=== PATIENT | female | born 1955 | race Caucasian/White ===

== ENCOUNTER 2016-09-12 09:32 | Day surgery (SDC) | payer BC, OTHER ==
--- NOTE | 2016-09-12 07:56 | P.GSHP ---
History of Present Illness H&P Date: 09/12/16 CHIEF COMPLAINT: GERD HISTORY OF PRESENT ILLNESS: The patient is a 61-year-old female who presents reports gastroesophageal reflux disease. Upper endoscopy was offered for further evaluation and management. PAST MEDICAL HISTORY: Please see list. PAST SURGICAL HISTORY: Please see list. MEDICATIONS: Please see list. ALLERGIES: Please see list. SOCIAL HISTORY: No illicit drug use FAMILY HISTORY: No reports of Crohn disease or ulcerative colitis. REVIEW OF ORGAN SYSTEMS: CONSTITUTIONAL: No reports of fevers or chills. GI: Denies any blood in stools or constipation. PHYSICAL EXAM: VITAL SIGNS: Stable GENERAL: Well-developed and pleasant in no acute distress. HEENT: No scleral icterus. Extraocular movements grossly intact. Moist buccal mucosa. NECK: Supple without lymphadenopathy. CHEST: Unlabored respirations. Equal bilateral excursions. CARDIOVASCULAR: Regular rate and rhythm. Distal 2+ pulses. ABDOMEN: Soft, nondistended. MUSCULOSKELETAL: No clubbing, cyanosis, or edema. ASSESSMENT: 1. Gastroesophageal reflux disease PLAN: 1. Recommend proceeding with an upper endoscopy Past Medical History Past Medical History: COPD, GERD/Reflux, Pulmonary Embolus (PE) Additional Past Medical History / Comment(s): PE-1976 ON BIRTHCONTROL & SMOKING. ,HIATAL HERNIA History of Any Multi-Drug Resistant Organisms: None Reported Past Surgical History: Appendectomy, Cholecystectomy, Heart Catheterization, Hysterectomy Additional Past Surgical History / Comment(s): 12-16-14 RT THYROID LOBECTOMY Past Anesthesia/Blood Transfusion Reactions: Motion Sickness Additional Past Anesthesia/Blood Transfusion Reaction / Comment(s): STATES "FEELS LIKE IT TAKES ME A LONG TIME TO WAKE UP" Past Psychological History: No Psychological Hx Reported Smoking Status: Former smoker Past Alcohol Use History: Occasional Additional Past Alcohol Use History / Comment(s): STARTED SMOKING 1968, 1 PPD Past Drug Use History: None Reported - Past Family History Sister(s) Family Medical History: Cancer Additional Family Medical History / Comment(s): GALLBLADDER CA Mother Family Medical History: COPD Additional Family Medical History / Comment(s): CARDIOMYOPATHY Father Additional Family Medical History / Comment(s): TRAUMA ACCIDENT- 1960 Medications and Allergies Home Medications Medication Instructions Recorded Confirmed Type Calcium Carbonate/Vitamin D3 1 each PO DAILY 12/03/14 09/07/16 History [Calcium 600-Vit D3 400 Tablet] Omeprazole [PriLOSEC] 20 mg PO QAM PRN 12/03/14 09/07/16 History Cholecalciferol [Vitamin D3] 1 tab PO DAILY 09/07/16 09/07/16 History S-Adenosylmethionine Sul Tosyl 1 tab PO DAILY 09/07/16 09/07/16 History [Stephane-E] Allergies Allergy/AdvReac Type Severity Reaction Status Date / Time amoxicillin [From Augmentin] Allergy Itching Verified 09/07/16 16:16 clavulanic acid Allergy Itching Verified 09/07/16 16:16 [From Augmentin]
[~2016-09-12 09:32] MED LIST: LACTATED RINGERS 1,000 ML IV SCH; LIDOCAINE 1% 20 ML VIAL (10MG/ML) FOR IV START INTRADERMA PRN
[2016-09-12 10:07] VITALS: RESP 16; TEMP 98.8
[2016-09-12] MEDS ORDERED: PROPOFOL 10 MG/ML 20 ML VIAL IV ONE (10:07)
[2016-09-12] MEDS ORDERED: LIDOCAINE 1% INJ 10MG/ML (20 ML MDV) ONE (10:07)
--- NOTE | 2016-09-12 10:19 | P.PCN ---
Date of Procedure: 09/12/16 Description of Procedure: PREOPERATIVE DIAGNOSIS: Gastroesophageal reflux disease. POSTOPERATIVE DIAGNOSIS: Gastroesophageal reflux disease. Chronic gastritis Diaphragmatic hiatal hernia. Erosive esophagitis OPERATION: Esophagogastroduodenoscopy with biopsies along antrum. SURGEON: Jaky Pabon MD ANESTHESIA: MAC. INDICATIONS: The patient is a 61-year-old female who presents with a history of gastroesophageal reflux disease. Benefits and risks of the procedure were described. Informed consent was obtained. DESCRIPTION: The patient was brought into the endoscopy suite and laid in the left lateral decubitus position. An Olympus gastroscope was passed along the posterior oropharynx down to the distal esophagus where the squamocolumnar junction was encountered at 39 cm from the incisors. The stomach was entered and minimal bile reflux was found. Additional findings are listed below. Biopsies with cold forceps were obtained of the antrum. The first through third portion of the duodenum was examined and unremarkable. Retroflexion of the scope confirmed Hill grade 3 lower esophageal valve. The squamocolumnar junction demostrated chronic LA grade C erosive esophagitis. The stomach was desufflated. The patient tolerated the procedure well. FINDINGS: Squamocolumnar junction 39 cm from the incisors. Diaphragmatic hiatus at 41 cm from the incisors Hiatal hernia, 2 cm. Hill grade 3 lower esophageal valve. LA grade C erosive esophagitis. Chronic gastritis along the antrum. No active duodenitis. RECOMMENDATIONS: Continue medical therapy. Further recommendations pending results of pathology report. Upper endoscopy as needed. Plan - Discharge Summary Discharge Medication List Calcium Carbonate/Vitamin D3 [Calcium 600-Vit D3 400 Tablet] 1 each PO DAILY [History] Omeprazole [PriLOSEC] 20 mg PO QAM PRN 12/03/14 [History] Cholecalciferol [Vitamin D3] 1 tab PO DAILY 09/07/16 [History] S-Adenosylmethionine Sul Tosyl [Stephane-E] 1 tab PO DAILY 09/07/16 [History]
[2016-09-12 10:41] VITALS: BP 112/60; PULSE 77
== END 2016-09-12 10:57 | disposition home or self-care (01) ==
LOC: ORWHC2ENDO 09:32
PROVIDERS: ATTEND Surgery Plastic and Reconstructive Surgery
DX: K21.0 Gastro-esophageal reflux disease with esophagitis (principal); K29.50 Unspecified chronic gastritis without bleeding; K44.0 Diaphragmatic hernia with obstruction, without gangrene; J44.9 Chronic obstructive pulmonary disease, unspecified; E11.9 Type 2 diabetes mellitus without complications; Z86.711 Personal history of pulmonary embolism; Z79.899 Other long term (current) drug therapy; Z88.1 Allergy status to other antibiotic agents; Z87.891 Personal history of nicotine dependence
CPT/HCPCS: 88305; 88342; 43239; J2001; J2704

== ENCOUNTER → 2016-10-23 | Outpatient (CLI) | payer BC ==
[2016-10-23 10:15] LABS: EKG EKG PERFORMED
[2016-10-23 10:44] LABS: CH 30.2; CHCM 35.7; HCT 44.2 % (34.0-46.0); HDW 2.76; HGB 15.8 gm/dL (11.4-16.0); MCH 30.3 pg (25.0-35.0); MCHC 35.6 g/dL (31.0-37.0); MCV 85.1 fL (80.0-100.0); Mean Platelet Volume 6.5; RDW 13.3 % (11.5-15.5); WBC 7.8 k/uL (3.8-10.6)
[2016-10-23 11:14] LABS: ALT 66 U/L (9-52); AST 46 U/L (14-36); Alkaline Phosphatase 99 U/L (38-126); Anion Gap 12 mmol/L; Blood Urea Nitrogen 9 mg/dL (7-17); Calcium 9.8 mg/dL (8.4-10.2); Carbon Dioxide 25 mmol/L (22-30); Chloride 106 mmol/L (98-107); Glucose 98 mg/dL (74-99); Non-African American GFR(MDRD) >60 (>60 ml/min/1.73 sqM); Potassium 4.5 mmol/L (3.5-5.1); Sodium 143 mmol/L (137-145); Total Protein 7.8 g/dL (6.3-8.2)
== END | disposition home or self-care (01) ==
LOC: LABWHC1 10:00
PROVIDERS: ATTEND Surgery Plastic and Reconstructive Surgery
DX: K44.9 Diaphragmatic hernia without obstruction or gangrene (principal)
CPT/HCPCS: 36415; 80053; 85027; 93005

== ENCOUNTER 2016-10-26 08:03 | Inpatient (IN) | payer BC ==
[2016-10-19 17:16] VITALS: BMI 35.0
[~2016-10-26 08:03] MED LIST changes: +DEXAMETHASONE SOD PHOSPHATE 10 MG/ML 1 ML VIAL IV ONE; +HEPARIN SODIUM,PORCINE 5,000 UNIT/ML 1 ML VIAL SQ ONE; +HYDROmorphone 1 MG/ML 1 ML SYRINGE IVP PRN; -LACTATED RINGERS 1,000 ML IV SCH; +ONDANSETRON 4 MG/2 ML VIAL IVP ONE; +SCOPOLAMINE 1.5MG/72HR PATCH TRANSDERM ONE; +ceFAZolin 2 GM in SODIUM CHLORIDE 0.9% 100 ML IVPB ONE
[2016-10-26] MEDS: LACTATED RINGERS 1,000 ML IV SCH ×2 (08:35→08:36)
[2016-10-26] MEDS ORDERED: ACETAMINOPHEN IV (For NPO) 1,000 MG in EMPTY BAG 1 BAG IVPB ONE ×2 (11:09→17:30)
--- NOTE | 2016-10-26 11:09 | P.GSHP ---
History of Present Illness H&P Date: 10/26/16 CHIEF COMPLAINT: Paraesophageal hiatal hernia with gastroesophageal reflux disease. HISTORY OF PRESENT ILLNESS: The patient is a 61-year-old female who presents with paraesophageal hiatal hernia. She has completed an esophageal manometry including upper endoscopy workup. Now she presents for surgical intervention. PAST MEDICAL HISTORY: Please see list. PAST SURGICAL HISTORY: Please see list. MEDICATIONS: Please see list. ALLERGIES: Please see list. SOCIAL HISTORY: No illicit drug use FAMILY HISTORY: No reports of Crohn disease or ulcerative colitis. REVIEW OF ORGAN SYSTEMS: CONSTITUTIONAL: No reports of fevers or chills. GI: Denies any blood in stools or constipation. PHYSICAL EXAM: VITAL SIGNS: Stable GENERAL: Well-developed pleasant and in no acute distress. HEENT: No scleral icterus. Extraocular movements grossly intact. Moist buccal mucosa. NECK: Supple without lymphadenopathy. CHEST: Unlabored respirations. Equal bilateral excursions. CARDIOVASCULAR: Regular rate and rhythm. Distal 2+ pulses. ABDOMEN: Soft, nondistended. No peritoneal signs. MUSCULOSKELETAL: No clubbing, cyanosis, or edema. ASSESSMENT: 1. Diaphragmatic paraesophageal hiatal hernia with severe gastroesophageal reflux disease. PLAN: 1. Recommend proceeding with a laparoscopic paraesophageal hiatal hernia with mesh. 2. Benefits and risks of surgical intervention was discussed including possibility of open technique. 3. Inpatient hospitalization recommended of 2 nights or less. 4. DVT prophylaxis. 5. Antibiotic prophylaxis. 6. She has also completed a very low caloric high-protein diet to address underlying hepatomegaly. Past Medical History Past Medical History: Cancer, COPD, GERD/Reflux, Pulmonary Embolus (PE), Thyroid Disorder Additional Past Medical History / Comment(s): PE-1976, (ON BIRTHCONTROL & SMOKING). HX CA CERVIX. HX GOITER. HIATAL HERNIA - UNABLE TO EAT SOLIDS IN PAST MO D/T PAIN, POS WGT LOSS. History of Any Multi-Drug Resistant Organisms: None Reported Past Surgical History: Appendectomy, Cholecystectomy, Heart Catheterization, Hysterectomy Additional Past Surgical History / Comment(s): 12-16-14 RT THYROID LOBECTOMY. EGD 09/12/16 Past Anesthesia/Blood Transfusion Reactions: Previous Problems w/ Anesthesia, Motion Sickness Additional Past Anesthesia/Blood Transfusion Reaction / Comment(s): STATES "FEELS LIKE IT TAKES ME A LONG TIME TO WAKE UP" Smoking Status: Current every day smoker - Past Family History Sister(s) Family Medical History: Cancer Additional Family Medical History / Comment(s): GALLBLADDER CA Mother Family Medical History: COPD Additional Family Medical History / Comment(s): CARDIOMYOPATHY Father Additional Family Medical History / Comment(s): TRAUMA ACCIDENT- 1960 Medications and Allergies Home Medications Medication Instructions Recorded Confirmed Type Calcium Carbonate/Vitamin D3 1 each PO DAILY 12/03/14 10/26/16 History [Calcium 600-Vit D3 400 Tablet] Omeprazole [PriLOSEC] 20 mg PO QAM PRN 12/03/14 10/26/16 History Cholecalciferol [Vitamin D3] 1,000 unit PO DAILY 09/07/16 10/26/16 History S-Adenosylmethionine Sul Tosyl 200 mg PO DAILY 09/07/16 10/26/16 History [Stephane-E] Allergies Allergy/AdvReac Type Severity Reaction Status Date / Time amoxicillin [From Augmentin] Allergy Itching Verified 10/26/16 08:17 clavulanic acid Allergy Itching Verified 10/26/16 08:17 [From Augmentin] Surgical - Exam Vital Signs Temp Pulse Resp BP Pulse Ox 97.5 F L 77 15 125/81 98 10/26/16 08:18 10/26/16 08:18 10/26/16 08:18 10/26/16 08:18 10/26/16 08:18
[2016-10-26] MEDS ORDERED: GLYCOPYRROLATE 0.2 MG/ML 2 ML VIAL ONE (13:52)
[2016-10-26] MEDS ORDERED: MIDAZOLAM 2 MG/2 ML VIAL ONE (13:52)
[2016-10-26] MEDS ORDERED: LIDOCAINE 1% INJ 10MG/ML (20 ML MDV) ONE (13:52)
[2016-10-26] MEDS ORDERED: PHENYLEPHRINE-0.9% NACL SYG 1 MG/10 ML SYRINGE ONE (13:52)
[2016-10-26] MEDS ORDERED: SUCCINYLCHOLINE CHLORIDE 100 MG/5 ML SYR IV ONE (13:52)
[2016-10-26] MEDS ORDERED: NEOSTIGMINE 1 MG/ML 10 ML VIAL ONE (13:52)
[2016-10-26] MEDS ORDERED: fentaNYL (PF) 50 MCG/ML 2 ML AMP ONE (13:52)
[2016-10-26] MEDS ORDERED: PROPOFOL 10 MG/ML 20 ML VIAL IV ONE (13:52)
[2016-10-26] MEDS ORDERED: HYDROmorphone (PF) 1 MG/ML ONE (13:52)
[2016-10-26] MEDS ORDERED: ROCURONIUM BROMIDE 10 MG/ML 10 ML VIAL IV ONE (13:52)
[2016-10-26] MEDS ORDERED: BUPIVACAIN-EPI 0.5%-1:200,000 30 ML VIAL SQ ONE (14:31)
[2016-10-26] MEDS ORDERED: LACTATED RINGERS 1,000 ML IV ONE (16:42)
[2016-10-26] MEDS ORDERED: HYDROcodone/APAP 15 ML SOLUTION PO PRN (17:05)
[2016-10-26] MEDS ORDERED: NALOXONE 0.4 MG/ML 1 ML VIAL IV PRN (17:05)
[2016-10-26] MEDS ORDERED: diphenhydrAMINE 50 MG/ML 1 ML VIAL IVP PRN (17:05)
--- NOTE | 2016-10-26 17:11 | P.PCN ---
Date of Procedure: 10/26/16 Preoperative Diagnosis: Paraesophageal hiatal hernia, gastroesophageal reflux disease Postoperative Diagnosis: Same Procedure(s) Performed: Robotic-assisted laparoscopic paraesophageal hiatal hernia repair with [place] Biopatch a 8 x 8 cm, intraoperative esophagogastroduodenoscopy Implants: 8 x 8 cm [place] Biopatch a Anesthesia: GETA, local (60) Surgeon: Jaky Pabon Estimated Blood Loss (ml): 5 Pathology: none sent Condition: stable Disposition: floor Indications for Procedure: Operative Findings: 1. 5 cm paraesophageal diaphragmatic hiatal hernia with moderate dissections in the mediastinum. 2. [place] Biopatch a onlay mesh placed. 3. Closure of the hiatus consistent with to 52-Maori bougie. Description of Procedure:
[2016-10-26] MEDS: 0.9% NACL WITH KCL 20 MEQ/L 1,000 ML IV SCH ×2 (18:50→23:59)
[2016-10-26] MEDS: KETOROLAC 30 MG/ML 1 ML VIAL IVP SCH (18:54)
[2016-10-26] MEDS: HYOSCYAMINE ORAL DROPS 1.875 MG/15 ML BOTTLE PO SCH (18:57)
[2016-10-26] MEDS: SIMETHICONE 40 MG/0.6 ML DROPS 2,000 MG/30 ML BOTTLE PO SCH (18:59)
[2016-10-26] MEDS ORDERED: TAMSULOSIN 0.4 MG CAP.ER.24H PO STA (21:47)
[2016-10-27] MEDS: SIMETHICONE 40 MG/0.6 ML DROPS 2,000 MG/30 ML BOTTLE PO SCH ×3 (00:02→12:10)
[2016-10-27] MEDS: HYOSCYAMINE ORAL DROPS 1.875 MG/15 ML BOTTLE PO SCH ×3 (00:04→12:09)
[2016-10-27] MEDS: CLINDAMYCIN 900 MG in DEXTROSE 5% IN WATER 50 ML IVPB SCH ×4 (00:05→08:22)
[2016-10-27] MEDS: ONDANSETRON 4 MG/2 ML VIAL IVP SCH ×2 (00:22→08:24)
[2016-10-27] MEDS: KETOROLAC 30 MG/ML 1 ML VIAL IVP SCH ×3 (06:19→12:11)
[2016-10-27] MEDS: 0.9% NACL WITH KCL 20 MEQ/L 1,000 ML IV SCH ×3 (06:42→14:40)
--- NOTE | 2016-10-27 08:09 | FL ---
EXAMINATION TYPE: FL esophagus cervic/pharynx DATE OF EXAM ORDERED: 10/27/2016 8:04 AM HISTORY: Status post Paul fundoplication. COMPARISON: None. FINDINGS: The patient drank Omnipaque with ease. The esophagus distended well with Omnipaque without evidence of obstructing or constricting disease. There is mild holdup of egress of contrast from the lower esophagus into the stomach. There is no evidence of extravasation or significant free air. IMPRESSION: STATUS POST PAUL FUNDOPLICATION. THERE IS VERY MILD HOLDUP OF CONTRAST AT THE GE JUNCTION.
[2016-10-27 08:56] LABS: Phosphorous 2.9 mg/dL (2.5-4.5); Potassium 4.5 mmol/L (3.5-5.1)
[2016-10-27] MEDS ORDERED: PANTOPRAZOLE 40 MG/10 ML VIAL IV SCH (09:00)
[2016-10-27] MEDS ORDERED: ENOXAPARIN 40 MG/0.4 ML SYRINGE SQ SCH (09:00)
[2016-10-27 09:01] VITALS: RESP 20
[2016-10-27] MEDS ORDERED: TAMSULOSIN 0.4 MG CAP.ER.24H PO STA (09:24)
--- NOTE | 2016-10-27 10:55 | P.PN ---
Progress Note - Text Discsussed with nurse regarding patient care. Patient had trouble with urination. No significant dysphaghia. She is tolerating liquids. Plan to contine Levsin and Simethicone for home. Pain meds [id number]. Flomax for urinary retention. Zofran as needed for nausea. Patient may be discharged following void.
[2016-10-27] MEDS: TAMSULOSIN 0.4 MG CAP.ER.24H PO STA ×3 (11:26→12:08)
[2016-10-27 13:54] VITALS: BP 141/71; PULSE 72; TEMP 97.5
--- NOTE | 2016-10-27 14:48 | P.PN ---
Progress Note - Text Nursing communication demonstrates patient having trouble with urination. No webb catheter was used during her procedure. Recommend place webb catheter and will discontinue in the office Saturday at .
--- NOTE | 2016-11-05 20:19 | P.OP ---
Date of Procedure: 10/26/16 Preoperative Diagnosis: Postoperative Diagnosis: Procedure(s) Performed: Implants: Indications for Procedure: Operative Findings: Description of Procedure: DESCRIPTION OF PROCEDURE(S): SURGEON: JACQUELYN FELIX MD DIRECTOR MOBILE: 1. Sven Juarez 2. Sharyn Caraballo PREOPERATIVE DIAGNOSES: 1. Morbid obesity due to excess calories. 2. Body mass index of 35.1. 3. Gastroesophageal reflux disease. 4. Paraesophageal hiatal hernia. POSTOPERATIVE DIAGNOSES: 1. Morbid obesity due to excess calories. 2. Body mass index of 35.1. 3. Gastroesophageal reflux disease. 4. Paraesophageal hiatal hernia. OPERATION: 1. Robotic-assisted laparoscopic paraesophageal hiatal hernia repair with [place] Biopatch A 8 x 8 cm. 2. Intraoperative esophagogastroduodenoscopy ANESTHESIA: General with local anesthetic. ESTIMATED BLOOD LOSS: 5 mL SPECIMENS REMOVED: None. COMPLICATIONS: None. FINDINGS: 1. 5 cm paraesophageal diaphragmatic hiatal hernia with moderate dissection into the mediastinum. 2. [place] Biopatch A onlay mesh placed. 3. Closure of the hiatus consistent with 52-Korean bougie. INDICATIONS: The patient is a 61-year-old female who presents with regurgitation, gastroesophageal reflux disease poorly controlled despite medications, and a symptomatic diaphragmatic hiatal hernia. Preoperative workup including upper endoscopy demonstrated a Hill grade 4 lower esophageal valve. She completed an esophageal manometry. Given the severity of her symptoms, particularly of her symptomatic diaphragmatic hiatal hernia, she had elected for surgical intervention. Benefits and risks including bleeding, infection, recurrence, dysphagia, injury to the lung, need for further surgery was described at length. Informed consent was obtained. DESCRIPTION: The patient was brought into the operating room theater. She was placed on a split leg table. Preoperatively she had received Lovenox subcutaneously for DVT prophylaxis. After general induction, the abdomen was prepped and draped in standard sterile fashion. The patient had previously voided prior to coming to the operating room. [place] draping was placed along the abdomen. A timeout protocol was confirmed with the surgical team, for which the patient's name, procedure to be performed including DVT prophylaxis with bilateral SCDs, and preoperative antibiotics were also confirmed. A robotic da Mery Si system was prepped and primed. At 20 cm from the xiphoid to just below the umbilicus, proposed port sites were marked with indelible marker along the anterior axillary line bilaterally, mid- clavicular line bilaterally with each ports were marked 10 cm from each other. The educational assistant teacher port was marked along the right lateral abdominal wall. A 5 mm 0 degrees laparoscopic trocar entry was performed along the left upper quadrant. The abdomen was insufflated to 15 mmHg pressure she tolerated well. Diagnostic laparoscopy demonstrated no injury to bowel, viscera, or mesentery. The liver surface was unremarkable. No injury had occurred to the small bowel or viscera. Along the hiatus, a defect was found anteriorly. Bariatric extended length robotic ports were selected for the entire case. Next, one 8 mm robotic port and 8-mm grasper was were placed along the right mid abdomen. The camera 12-mm port extended length was maintained along the epigastrium. An educational assistant teacher 12-mm port was placed along the right lateral abdominal wall. Two 8 mm port was placed along the left upper abdominal wall after exchanging the 5 mm port. Please note that the ports were placed at least 20 cm away from the target anatomy. Care was taken to check that each robotic arm were safely away from collision with the bed or the patient. At the epigastrium, a median sized Reyes liver retractor was placed under direct visualization with the Iron Heat Engineering Teacher placed over the right shoulder of the patient. The additional third robotic arm was placed along the left aspect of the patient. The patient was repositioned in reverse Trendelenburg position after lowering the bed. The robot was docked above the head of the patient. Using a grasper for arm 3, a grasper for arm 2, including hook cautery for arm 1 , the robotic system was docked and primed as described. Instruments were interchanged by the educational assistant teacher . I had sat at the console. I went to the head of the bed to perform intraoperative esophagogastroduodenoscopy. An Olympus gastroscope was passed through posterior oropharynx, where the GE junction was found distal to the diaphragmatic hiatus. The intra-abdominal length obtained during the case was over 4 cm. The stomach was entered and bile was aspirated from the stomach. Retroflexion of the scope confirmed a Hill grade 1 lower esophageal valve. The stomach had been desufflated. No evidence of leaks were found either of the mucosal defects of the esophagus or stomach. The hiatal closure was consistent with a 52 Korean bougie as a bougie was passed. This concluded the endoscopic portion of the case. I re-scrubbed into the case. All instruments and pneumoperitoneum were evacuated from the abdominal cavity. Incisions were reapproximated using 4-0 Monocryl in an interrupted subcuticular fashion. The 12-mm port site was oversewn using 0 Vicryl in a Evan Brewster. Dermabond was applied to the skin. Local anesthetic was infiltrated in all wounds for postop analgesia. Multiple intra-abdominal films were obtained. At the end of the procedure, needle, sponge, and instrument count was verified correct by the x ray service technician. The patient had tolerated the procedure well and was taken to the postanesthesia unit in stable condition. Intraoperative films were reviewed with the patient's family who was pleased with the level of care.
--- NOTE | 2016-11-05 20:24 | P.DS ---
Providers Date of admission: 10/26/16 08:03 Expected date of discharge: 10/27/16 Attending physician: Jaky Pabon Primary care physician: Boone Oquendo - Discharge Diagnosis(es) (1) Paraesophageal hiatal hernia Status: Acute (2) Gastroesophageal reflux disease with esophagitis Status: Acute (3) Morbid obesity due to excess calories Status: Acute (4) Body mass index (BMI) of 34.0 to 34.9 in adult Status: Acute (5) Acute urinary retention Status: Acute Hospital Course: PREOPERATIVE DIAGNOSES: 1. Morbid obesity due to excess calories. 2. Body mass index of 35.1. 3. Gastroesophageal reflux disease. 4. Paraesophageal hiatal hernia. POSTOPERATIVE DIAGNOSES: 1. Morbid obesity due to excess calories. 2. Body mass index of 35.1. 3. Gastroesophageal reflux disease. 4. Paraesophageal hiatal hernia. COURSE: The patient is a 61-year-old female who presented with regurgitation, gastroesophageal reflux disease poorly controlled despite medications, and a symptomatic diaphragmatic hiatal hernia. Preoperative workup including upper endoscopy demonstrated a Hill grade 4 lower esophageal valve. She completed an esophageal manometry. Given the severity of her symptoms, particularly of her symptomatic diaphragmatic hiatal hernia, she had elected for surgical intervention. She had a laparoscopic paraesophageal hiatal hernia repair with mesh. Post procedure, she was tolerating liquids. She had developed urinary retention and a Webb catheter was placed. She had been discharged with Flomax. Extensive post Sada diet had been reviewed in detail prior to discharge. Pertinent Studies: Esophagram demonstrating no extravasation or severe obstruction. Procedures: OPERATION: 1. Robotic-assisted laparoscopic paraesophageal hiatal hernia repair with [place] Biopatch A 8 x 8 cm. 2. Intraoperative esophagogastroduodenoscopy. Patient Condition at Discharge: Fair Plan - Discharge Summary New Discharge Prescriptions: New Hyoscyamine Oral Drops [Levsin Drops] 0.125 mg PO Q6HR bottle Simethicone 40 mg/0.6 ml Drops [Mylicon Drops] 40 mg PO Q6HR bottle Tamsulosin [Flomax] 0.4 mg PO DAILY #7 cap Ondansetron Odt [Zofran ODT] 4 mg PO Q8HR PRN #10 tab PRN Reason: Nausea Continue Calcium Carbonate/Vitamin D3 [Calcium 600-Vit D3 400 Tablet] 1 tab PO DAILY Discontinued Omeprazole [PriLOSEC] 20 mg PO QAM PRN PRN Reason: GERD S-Adenosylmethionine Sul Tosyl [Stephane-E] 200 mg PO DAILY Cholecalciferol [Vitamin D3] 1,000 unit PO DAILY Discharge Medication List Calcium Carbonate/Vitamin D3 [Calcium 600-Vit D3 400 Tablet] 1 tab PO DAILY [History] Hyoscyamine Oral Drops [Levsin Drops] 0.125 mg PO Q6HR bottle 10/27/16 [Rx] Ondansetron Odt [Zofran ODT] 4 mg PO Q8HR PRN #10 tab 10/27/16 [Rx] Simethicone 40 mg/0.6 ml Drops [Mylicon Drops] 40 mg PO Q6HR bottle 10/27/16 [ Rx] Tamsulosin [Flomax] 0.4 mg PO DAILY #7 cap 10/27/16 [Rx] Follow up Appointment(s)/Referral(s): Jaky Pabon MD [STAFF PHYSICIAN] - 10/30/16 8:00 am (At [place]) Patient Instructions/Handouts: Webb Catheter Placement and Care (DC), Urinary Leg Bag (GEN), Laparoscopic Hiatal Hernia Repair (DC) Activity/Diet/Wound Care/Special Instructions: No carbonated beverage, straws or jello. Stay on liquid diet only. (as instructed by servicer coin machines, refer to diet sheet) No lifting over 4 lbs in 4 weeks. May shower, no bath tub soaks. Call office if any fever, chills, increased pain. redness or discolored drainage from puncture sites or any concerns. Empty catheter drainage bag as needed. keep drainage bag below waist. shower daiily. good handwashing before and after catheter care.Refer to webb catheter care sheet. Continue to use Incentive spirometery at home Discharge Disposition: HOME SELF-CARE
== END 2016-10-27 16:07 | disposition home or self-care (01) | DRG 327 ==
LOC: 2ORWHC 08:03 → 6PED 16:58
PROVIDERS: ADMIT Surgery Plastic and Reconstructive Surgery; ATTEND Surgery Plastic and Reconstructive Surgery
PROC: 0BUR4JZ (ICD-10-PCS; 2016-10-26)
PROC: 0BUS4JZ (ICD-10-PCS; 2016-10-26)
PROC: 8E0W4CZ Robotic Assisted Procedure of Trunk Region, Percutaneous Endoscopic Approach (ICD-10-PCS; 2016-10-26)
PROC: 0WQF4ZZ Repair Abdominal Wall, Percutaneous Endoscopic Approach (ICD-10-PCS; 2016-10-26)
PROC: 0WBC4ZZ Excision of Mediastinum, Percutaneous Endoscopic Approach (ICD-10-PCS; 2016-10-26)
PROC: 0DJ08ZZ Inspection of Upper Intestinal Tract, Via Natural or Artificial Opening Endoscopic (ICD-10-PCS; 2016-10-26)
PROC: 0DV44ZZ Restriction of Esophagogastric Junction, Percutaneous Endoscopic Approach (ICD-10-PCS; principal; 2016-10-26 10:40)
PROC: 0T9B70Z Drainage of Bladder with Drainage Device, Via Natural or Artificial Opening (ICD-10-PCS; 2016-10-27)
DX: K44.9 Diaphragmatic hernia without obstruction or gangrene (principal); K43.0 Incisional hernia with obstruction, without gangrene; E66.01 Morbid (severe) obesity due to excess calories; R16.0 Hepatomegaly, not elsewhere classified; Z68.35 Body mass index [BMI] 35.0-35.9, adult; J44.9 Chronic obstructive pulmonary disease, unspecified; K21.0 Gastro-esophageal reflux disease with esophagitis; R33.9 Retention of urine, unspecified; E04.9 Nontoxic goiter, unspecified; F17.200 Nicotine dependence, unspecified, uncomplicated; E89.0 Postprocedural hypothyroidism; Z90.49 Acquired absence of other specified parts of digestive tract; Z86.711 Personal history of pulmonary embolism; Z79.899 Other long term (current) drug therapy; Z85.41 Personal history of malignant neoplasm of cervix uteri; Z82.5 Family history of asthma and other chronic lower respiratory diseases; Z80.0 Family history of malignant neoplasm of digestive organs; Z90.710 Acquired absence of both cervix and uterus; Z71.3 Dietary counseling and surveillance; Z82.49 Family history of ischemic heart disease and other diseases of the circulatory system; Z88.1 Allergy status to other antibiotic agents; Z88.0 Allergy status to penicillin
CPT/HCPCS: 74210; 80051; 83735; 84100